=== PATIENT | female | born 1950 | race Two or more races ===

== ENCOUNTER 2017-12-11 18:35 | Emergency (ER) | payer BC ==
[~2017-12-11] VITALS: Ht 160 cm; Wt 68.0 kg
[~2017-12-11 18:35] MED LIST: METH4TAB3 PO; VENL150C2 PO
[2017-12-11] MEDS ORDERED: MONT10TA22 PO (18:42)
[2017-12-11] MEDS ORDERED: FAMO40TA71 PO (18:42)
[2017-12-11] MEDS ORDERED: EPINEPHRINE 1 MG/1 ML AMP SQ ONE (19:15)
[2017-12-11] MEDS ORDERED: predniSONE 20 MG TABLET ONE (19:15)
[2017-12-11] MEDS ORDERED: EPINEPHRINE 1 MG/1 ML AMP ONE (19:15)
[2017-12-11] MEDS ORDERED: predniSONE 10 MG TABLET PO ONE (19:15)
--- NOTE | 2017-12-11 19:24 | NUR ---
Patient discharged to home in stable conditon. Written and verbal after care instructions given. Patient verbalizes understanding of instructions.
[2017-12-11 19:35] VITALS: BP 121/74
== END 2017-12-11 19:36 | disposition home or self-care (01) ==
LOC: ER 18:37
DX: L50.9 Urticaria, unspecified (principal); J45.909 Unspecified asthma, uncomplicated; K21.9 Gastro-esophageal reflux disease without esophagitis; Z88.2 Allergy status to sulfonamides; Z79.899 Other long term (current) drug therapy
CPT/HCPCS: A4663; J0171; J7512

== ENCOUNTER 2017-12-13 01:06 | Emergency (ER) | payer MEDICARE, BC ==
[~2017-12-13] VITALS: Ht 152.4 cm; Wt 54.4 kg
[~2017-12-13 01:06] MED LIST changes: +FAMO40TA71 PO; +MONT10TA22 PO
--- NOTE | 2017-12-13 01:35 | NUR ---
Dr. Leary at bedside for MSE.
[2017-12-13] MEDS ORDERED: FAMOTIDINE. 20 MG/2 ML VIAL IV ONE ×2 (01:45→02:00)
[2017-12-13] MEDS ORDERED: methylPREDNISolone SOD SUCC 125 MG/2 ML VIAL IV ONE (01:45)
[2017-12-13] MEDS ORDERED: methylPREDNISolone SOD SUCC 125 MG/2 ML VIAL ONE (02:00)
--- NOTE | 2017-12-13 04:14 | NUR ---
Pt states throat is itchy and sore but much better than when she walked in.
--- NOTE | 2017-12-13 05:07 | NUR ---
Patient discharged to home in stable conditon. Written and verbal after care instructions given. Patient verbalizes understanding of instructions. Pt ambulated out of ER with steady gait, no acute signs of distress, VSS, IV site discontinued, all belongings taken.
[2017-12-13 05:09] VITALS: BP 141/80
== END 2017-12-13 05:10 | disposition home or self-care (01) ==
LOC: ER 01:36
DX: T78.2XXA Anaphylactic shock, unspecified, initial encounter (principal); J45.909 Unspecified asthma, uncomplicated; K21.9 Gastro-esophageal reflux disease without esophagitis; Z88.2 Allergy status to sulfonamides; Z79.899 Other long term (current) drug therapy
CPT/HCPCS: A4663; J2930; J3490

== ENCOUNTER 2022-04-22 16:06 | Emergency (ER) | payer MEDICARE, BC ==
[~2022-04-22] VITALS: Ht 152.4 cm; Wt 56.2 kg
[~2022-04-22 16:06] MED LIST changes: -METH4TAB3 PO
--- NOTE | 2022-04-22 17:50 | NUR ---
Patient discharged to home in stable condition. Written and verbal after care instructions given. Patient verbalizes understanding of instructions. Stressed follow up or return to ER for worsening s/s.
[2022-04-22 17:51] VITALS: BP 115/83
== END 2022-04-22 17:51 | disposition home or self-care (01) ==
LOC: ER 16:11
DX: R05.9 Cough, unspecified (principal); Z20.828 Contact with and (suspected) exposure to other viral communicable diseases; Z88.2 Allergy status to sulfonamides; J45.909 Unspecified asthma, uncomplicated; Z87.01 Personal history of pneumonia (recurrent); E78.5 Hyperlipidemia, unspecified; F32.A Depression, unspecified; Z79.899 Other long term (current) drug therapy
CPT/HCPCS: A4663

== ENCOUNTER 2022-04-26 07:07 | Emergency (ER) | payer MEDICARE, BC ==
[~2022-04-26] VITALS: Ht 152.4 cm; Wt 56.2 kg
[2022-04-26] MEDS ORDERED: SYMBASTATIN (08:04)
[2022-04-26] MEDS ORDERED: metoprolol PO (08:05)
[2022-04-26] MEDS ORDERED: BENZONATATE 100 MG CAPSULE PO ONE (08:15)
[2022-04-26] MEDS ORDERED: GUAIFENESIN/DEXTROMETHORPHAN 5 ML UDC PO ONE (08:15)
[2022-04-26] MEDS ORDERED: IPRATROPIUM BROMIDE 0.5 MG/2.5 ML NEBU NEB ONE (08:15)
[2022-04-26] MEDS ORDERED: ALBUTEROL SULFATE 2.5 MG/ 0.5 ML NEBU NEB ONE (08:15)
[2022-04-26] MEDS ORDERED: IPRATROPIUM BROMIDE 0.5 MG/2.5 ML NEBU ONE (08:19)
[2022-04-26] MEDS ORDERED: ALBUTEROL SULFATE 2.5 MG/3 ML NEBU ONE (08:19)
[2022-04-26] MEDS ORDERED: GUAIFENESIN/DEXTROMETHORPHAN 5 ML UDC ONE (08:31)
[2022-04-26] MEDS ORDERED: BENZONATATE 100 MG CAPSULE ONE (08:31)
[2022-04-26] MEDS ORDERED: GUAI1TBM19 PO (08:54)
[2022-04-26] MEDS ORDERED: BENZ-13 PO (08:54)
[2022-04-26] MEDS ORDERED: ALBU8.5H8 INH (08:54)
[2022-04-26] MEDS ORDERED: PRED20TA PO (08:55)
[2022-04-26] MEDS ORDERED: FLUTICASONE PROP NASAL SPRAY 16 GM BOTTLE NS SCH (09:00)
--- NOTE | 2022-04-26 09:04 | NUR ---
Pt. admitted to , under care of Dr. Norwood List completed
[2022-04-26 09:48] VITALS: BP 142/103
== END 2022-04-26 10:47 | disposition home or self-care (01) ==
LOC: ER 07:12
DX: J98.8 Other specified respiratory disorders (principal); R09.89 Other specified symptoms and signs involving the circulatory and respiratory systems; R05.9 Cough, unspecified; Z20.822 Contact with and (suspected) exposure to COVID-19; B34.9 Viral infection, unspecified; J45.901 Unspecified asthma with (acute) exacerbation; Z87.892 Personal history of anaphylaxis; Z88.2 Allergy status to sulfonamides; Z87.01 Personal history of pneumonia (recurrent); K21.9 Gastro-esophageal reflux disease without esophagitis; F32.A Depression, unspecified; Z79.899 Other long term (current) drug therapy
CPT/HCPCS: 71045; 87400; A4663; J3535; J3590

== ENCOUNTER 2022-05-23 19:45 | Emergency (ER) | payer MEDICARE, BC ==
[~2022-05-23] VITALS: Ht 157.5 cm; Wt 56.2 kg
[~2022-05-23 19:45] MED LIST changes: +ALBU8.5H8 INH; +BENZ-13 PO; +GUAI1TBM19 PO; +PRED20TA PO; +SYMBASTATIN; +metoprolol PO
[2022-05-23] MEDS ORDERED: OXYCODONE/APAP 5-325 MG TABLET PO ONE (20:45)
[2022-05-23] MEDS ORDERED: OXYCODONE/APAP 5-325 MG TABLET ONE (21:14)
[2022-05-23] MEDS ORDERED: HYDR-3980 PO (22:05)
--- NOTE | 2022-05-23 22:11 | NUR ---
Patient discharged to home in stable condition. Written and verbal after care instructions given. Patient verbalizes understanding of instructions. Stressed follow up or return to ER for worsening s/s. Patient walked to ER with steady gait, NAD noted, Patient is a/ox4
[2022-05-23 22:12] VITALS: BP 140/78
== END 2022-05-23 22:12 | disposition home or self-care (01) ==
LOC: ER 19:45
DX: S42.102A Fracture of unspecified part of scapula, left shoulder, initial encounter for closed fracture (principal); V40 Car occupant injured in collision with pedestrian or animal; Y92.89 Other specified places as the place of occurrence of the external cause; S80.02XA Contusion of left knee, initial encounter; S80.01XA Contusion of right knee, initial encounter; M85.80 Other specified disorders of bone density and structure, unspecified site; E78.5 Hyperlipidemia, unspecified; Z88.2 Allergy status to sulfonamides; Z87.892 Personal history of anaphylaxis
CPT/HCPCS: 73010; A4663

== ENCOUNTER 2022-08-22 19:19 | Emergency (ER) | payer MEDICARE, BC ==
[~2022-08-22] VITALS: Ht 144.8 cm; Wt 56.7 kg
[~2022-08-22 19:19] MED LIST changes: +HYDR-3980 PO
[2022-08-22] MEDS ORDERED: ACETAMINOPHEN 325 MG TABLET PO ONE ×2 (19:45→20:15)
--- NOTE | 2022-08-22 19:55 | NUR ---
Observed patient walk into ER with a steady gait. NAD noted.
[2022-08-22] MEDS ORDERED: ACETAMINOPHEN 325 MG TABLET ONE (20:08)
--- NOTE | 2022-08-22 20:20 | NUR ---
Patient taken down for CT.
--- NOTE | 2022-08-22 20:49 | NUR ---
Patient in room 4B from CT.
--- NOTE | 2022-08-22 21:38 | NUR ---
Patient discharged to home in stable condition. A/O x 4. NAD noted. Ambulatory with a steady gait. All belongings with patient. Written and verbal after care instructions given. Patient verbalizes understanding of instructions. Stressed follow up or return to ER for worsening s/s.
== END 2022-08-22 21:40 | disposition home or self-care (01) ==
LOC: ER 19:19
DX: S42.102A Fracture of unspecified part of scapula, left shoulder, initial encounter for closed fracture (principal); S46.012A Strain of muscle(s) and tendon(s) of the rotator cuff of left shoulder, initial encounter; W01.0XXA Fall on same level from slipping, tripping and stumbling without subsequent striking against object, initial encounter; Y93.01 Activity, walking, marching and hiking; Y92.89 Other specified places as the place of occurrence of the external cause; Z79.82 Long term (current) use of aspirin; I10 Essential (primary) hypertension; M50.31 Other cervical disc degeneration, high cervical region; E78.5 Hyperlipidemia, unspecified; Z88.2 Allergy status to sulfonamides; K21.9 Gastro-esophageal reflux disease without esophagitis; Z79.899 Other long term (current) drug therapy
CPT/HCPCS: 70450; 71101; 72125; 73010; 73030; 73080; A4663

== ENCOUNTER 2023-04-14 14:27 | Emergency (ER) | payer MEDICARE, BC ==
[~2023-04-14] VITALS: Ht 152.4 cm; Wt 56.7 kg
[2023-04-14 17:37] VITALS: BP 146/85; O2SAT 97
== END 2023-04-14 15:05 | disposition home or self-care (01) ==
LOC: ER 14:28
DX: S93.401A Sprain of unspecified ligament of right ankle, initial encounter (principal); J45.909 Unspecified asthma, uncomplicated; E78.5 Hyperlipidemia, unspecified; Z88.2 Allergy status to sulfonamides; Z79.899 Other long term (current) drug therapy; W10.9XXA Fall (on) (from) unspecified stairs and steps, initial encounter; Y93.89 Activity, other specified; Y92.89 Other specified places as the place of occurrence of the external cause; Y99.8 Other external cause status
CPT/HCPCS: 73600; A4606; A4663

== ENCOUNTER 2025-04-16 14:25 | Emergency (ER) | payer MEDICARE, BC ==
[~2025-04-16] VITALS: Ht 152.4 cm; Wt 57.2 kg
[~2025-04-16 14:25] MED LIST changes: +ALBU8.5H8 IH; +AZIT250T13 PO
[2025-04-16 14:28] VITALS: BP 148/84
[2025-04-16] MEDS ORDERED: ASPI81TA31 PO (14:38)
[2025-04-16] MEDS ORDERED: PROP10TA10 PO (14:38)
[2025-04-16 16:30] VITALS: BP 139/81; O2SAT 98
== END 2025-04-16 16:23 | disposition home or self-care (01) ==
LOC: ER 14:25
DX: S16.1XXA Strain of muscle, fascia and tendon at neck level, initial encounter (principal); S09.90XA Unspecified injury of head, initial encounter; M26.609 Unspecified temporomandibular joint disorder, unspecified side; M26.621 Arthralgia of right temporomandibular joint; I11.9 Hypertensive heart disease without heart failure; E11.9 Type 2 diabetes mellitus without complications; E78.5 Hyperlipidemia, unspecified; F41.9 Anxiety disorder, unspecified; J45.909 Unspecified asthma, uncomplicated; M47.812 Spondylosis without myelopathy or radiculopathy, cervical region; Z79.52 Long term (current) use of systemic steroids; Z79.82 Long term (current) use of aspirin; Z79.899 Other long term (current) drug therapy; Z88.2 Allergy status to sulfonamides; Z88.7 Allergy status to serum and vaccine
CPT/HCPCS: 70450; 72125; A4606; A4663